=== PATIENT | female | born 1940 | race Caucasian/White ===

== ENCOUNTER 2023-08-15 09:54 | Emergency (ER) | payer MEDICARE, OTHER, SELFPAY ==
[2023-08-15 09:57] VITALS: BP 141/78
--- NOTE | 2023-08-15 11:07 | ED.GENMED ---
History of Present Illness
General
Chief Complaint: Skin Surface Trauma
Time Seen by Provider: 08/15/23 10:06
History of Present Illness
History of Present Illness:
83-year-old female presents the emergency department for evaluation of a left forearm laceration, she slipped and fell onto her litter box and the wound is contaminated with copious amounts of the litter. Bleeding is controlled. Last tetanus is
unknown however she is on hospice care for small bowel cancer
Past History
Past History
ED Past Medical History: Cancer (Duodenal CA, Chemo q 2 weeks), Hypercholesterolemia and Other (Kidney stones. Gallstone that caused Pancreatitis, UTI); Negative CAD, CVA, HTN or NIDDM
ED Past Surgical History: Cholecystectomy, and Other (Sinus surgery)
Patient has exhibited threatening behavior?: No
PSI?: No
Social History
Tobacco: Non-smoker
Alcohol: None
Drug: None
Personal:
Living: alone
Family History
Family History: Other (Noncontributory)
Review of Systems
Review of Systems
Allergies reviewed?: Yes
All Other Systems: ROS reviewed and negative except as documented in HPI and ROS
Phy Exam
Physical Exam
Physical Exam:
GEN: Thin and frail
HEENT: Oral mucosa moist, no scleral icterus
Cardiac: Regular rate
Lung: No respiratory distress, no tachypnea
MSK: No gross deformity or injuries
Skin: 21 cm full-thickness wound to the left ulnar forearm
Neuro: AO x3, moves all extremities freely
Psych: Calm, cooperative
Course
Vital Signs
Initial and Last Documented VS:
Initial Vital Signs
Temp Pulse Resp BP Pulse Ox
97.8 F 106 18 141/78 98
08/15/23 09:57 08/15/23 09:57 08/15/23 09:57 08/15/23 09:57 08/15/23 09:57
Last Documented Vital Signs
Temp Pulse Resp BP Pulse Ox
97.8 F 106 18 141/78 98
08/15/23 09:57 08/15/23 09:57 08/15/23 09:57 08/15/23 09:57 08/15/23 09:57
Procedures
Laceration Closure
Left forearm:
Status of Wound: dirty and imbedded foreign material
Size of Wound in cm: 21
Description of Wound Edges: flap-well vascularized
Preparation: cleaned with soap & water and cleaned with Betadine
Anesthesia: 1% Lidocaine with epi
Revision/Debridement: debrided and irrigate-direct pressure
Wound exploration: extensive cleaning of contaminated wound and all visible FB removed
Type of Closure: single layer closure
Skin Closure Material: 5-0 prolene
Number of sutures: 12
MDM/Problems Addressed
MDM/Problems Addressed:
Extensive contaminated wound with cat litter throughout. After extensive cleaning the wound was closed with Steri-Strips and sutures, will cover with doxycycline and metronidazole for potential cat fecal contamination
*Critical Care Note
Total Time (30-74mins, 75-104mins- exclusive of procedures): Not Applicable
ED Attending Note
-
Portions of this chart may have been created with voice recognition software.� Occasional wrong word or��sound alike� substitutions may have occurred due to the inherent limitations of voice recognition software.
Discharge Plan
Departure
Patient Disposition: Home (Routine Discharge)
Date of Disposition: 08/15/23
Time of Disposition: 11:07
Patient with high blood pressure during this ER visit?: No
Discharge Problem:
Laceration of forearm, left
Instructions: Laceration Repair With Stitches (DC)
Prescriptions:
New
doxycycline monohydrate 100 mg capsule
100 mg PO BID 7 Days Qty: 14 0RF
metronidazole 500 mg tablet
500 mg PO TID 7 Days Qty: 21 0RF
No Action
prochlorperazine maleate [Compazine] 10 mg Tablet
10 mg PO DAILY PRN (Reason: nausea)
Creon 12,000-38,000 -60,000 unit capsule,delayed release(DR/EC)
2 cap PO MEALS
Lucentis 0.5 mg/0.05 mL Solution
0.5 mg INTRAVITREAL [id number]
famotidine [Pepcid] 20 mg Tablet
20 mg PO BID@0800,1700
Systane Ultra 0.4-0.3 % Drops
1 drp BOTH EYES Q4H PRN (Reason: itching/dry eye)
desonide 0.05 % cream
1 applic TOPICAL BID
alprazolam 0.25 mg Tablet
0.125 mg PO DAILY PRN (Reason: anxiety)
Patient Comments:
01/01/2022: last filled 03/15/18, 90 tabs for [address] [facility]
fluticasone propionate 50 mcg/actuation [place],Suspension
1 spray INTRANASAL DAILY
sulfacetamide sodium-sulfur 9.8-4.8 % cleanser
1 applic TOPICAL DAILY
Rx Instructions:
wash face with once daily
acetaminophen [Acetaminophen Pain Relief] 500 mg Tablet
500 mg PO QID PRN (Reason: pain)
ipratropium bromide 21 mcg (0.03 %) [place],Non-Aerosol
2 spray INTRANASAL PRN (Reason: allergies)
Systane Ultra 0.4-0.3 % Drops
1 drp OPHTHALMIC (EYE) DAILY PRN (Reason: dry eyes)
oxycodone-acetaminophen 5-325 mg Tablet
1 tab PO Q6H PRN (Reason: pain)
desonide 0.05 % Cream
1 applic TOPICAL BID
magnesium oxide 400 mg magnesium tablet
800 mg PO TID Qty: 90 0RF
pantoprazole [Protonix] 40 mg tablet,delayed release (DR/EC)
40 mg PO DAILY Qty: 30 0RF
calcitriol 0.25 mcg capsule
0.25 mcg PO DAILY
fentanyl 25 mcg/hr Patch 72 Hour
1 patch transdermal Q72H Qty: 2 0RF
Referrals:
Renate Villalobos MD [Family Provider] -
Activity Restrictions/Additional Instructions:
Keep wound dry for 24 hours, then gentle soap and water washing is recommended
Keep covered and change bandage each day
Sutures will need to be removed in 10 days by your primary doctor, urgent care or your hospice nurse
Take the antibiotics in full
Interventions
Interventions:
*Risk Screen - Suicide Last Done: 08/15/23 10:12
*General Assessment Last Done: 08/15/23 09:57
*Neglect/Abuse Screening Last Done: 08/15/23 10:12
ED- Fall Risk Assessment Last Done: 08/15/23 10:14
*ED COVID-19 Vaccine History Last Done: 08/15/23 09:57
*Nursing Disposition Last Done: 08/15/23 12:11
ED-Skin Assessment Last Done: 08/15/23 10:12
Discharge Date and Time
Discharge Date/Time: 08/15/23 12:11
Print Language: MACEDONIAN
== END 2023-08-15 12:11 | disposition home or self-care (01) ==
LOC: EMR 09:54
PROVIDERS: EMERGENCY PHYSICIAN Emergency Medicine; FAMILY PHYSICIAN Family Medicine
DX: S51.822A Laceration with foreign body of left forearm, initial encounter (principal); W01.198A Fall on same level from slipping, tripping and stumbling with subsequent striking against other object, initial encounter; Y92.009 Unspecified place in unspecified non-institutional (private) residence as the place of occurrence of the external cause; E78.00 Pure hypercholesterolemia, unspecified; Z85.068 Personal history of other malignant neoplasm of small intestine; Z87.442 Personal history of urinary calculi; Z87.440 Personal history of urinary (tract) infections; Z90.49 Acquired absence of other specified parts of digestive tract
CPT/HCPCS: 99283; 13121; 13122